=== PATIENT | male | born 1990 | race African-American/Black ===

== ENCOUNTER 2020-09-13 05:00 | Emergency (ER) | payer MEDICAID, SELFPAY ==
[2020-09-13 05:13] VITALS: BP 153/95; PULSE 58; RESP 18; TEMP 36.5; O2SAT 97; BMI 24.0
--- NOTE | 2020-09-13 06:02 | ED.DENTAL ---
HPI - Dental/Oral General Chief complaint: Dental/Oral Stated complaint: Dental pain Time Seen by Provider: 09/13/20 05:56 Source: patient Mode of arrival: ambulatory Limitations: no limitations History of Present Illness HPI Narrative: Patient comes to the emergency room complaining of dental pain. Patient complaining of maxillary pain in the right side. The pain has been ongoing for about 2 months, gradually getting worse. Patient has an appointment with the dentist in 2 days but can no longer stand the pain. Patient states that 2 months ago he was eating and chipped of a part of his tooth. Patient denies fever or chills MD Complaint: tooth pain Related Data Previous Rx's Medication Instructions Recorded ketorolac 10 mg tablet 10 mg PO TID PRN 5 Days #10 tab 09/13/20 penicillin V potassium 500 mg 500 mg PO TID 10 Days #30 tab 09/13/20 tablet Allergies Allergy/AdvReac Type Severity Reaction Status Date / Time No Known Allergies Allergy Verified 09/13/20 05:12 Review of Systems Review of Systems: Constitutional : No Weight loss, No Fever, No Chills, No Night Sweats, No Fatigue, No Malaise ENT/Mouth : Complaining of dental pain right maxillary side, No Hearing loss, No Ear Pain, No Nasal Congestion, No Sinus Pain, No Hoarseness, No sore throat, No Rhinorrhea, No Swallowing Difficulty Eyes: No Eye Pain, No Swelling, No Redness, No Foreign Body, No Discharge, No Vision Changes Cardiovascular : No Chest Pain, No SOB, No Dyspnea on Exertion, No Orthopnea, No Edema, No Palpitations Respiratory : No Cough, No Sputum, No Wheezing, No Smoke Exposure, No Dyspnea Gastrointestinal : No Nausea, No Vomiting, No Diarrhea, No Constipation, No abdominal Pain, No Hematochezia, No Melena Genitourinary : no irregular bleeding, No Dysuria, No Urinary Frequency, No Hematuria, No Urinary Incontinence, No Urgency, No Flank Pain, No Urinary Flow Changes, No Hesitancy Musculoskeletal : No joint pain, No Myalgias, No Joint Swelling Skin : No Skin Lesions, No rash Neuro : No Weakness, No Numbness, No Paresthesias, No Loss of Consciousness, No Dizziness, No Headache Psych : No Anxiety/Panic, No Depression, No SI/HI/AH/VH, No Social Issues, Heme/Lymph: No Bruising, No Bleeding,No Lymphadenopathy Endocrine : No Polyuria, No Polydipsia, No Temperature Intolerance Physical Exam Vital Signs: Vital Signs: Last Vital Signs Temp 97.7 F 09/13/20 05:13 Pulse 58 09/13/20 05:13 Resp 18 09/13/20 05:13 BP 153/95 H 09/13/20 05:13 Pulse Ox 97 09/13/20 05:13 Body Mass Index 24.0 Const: Other: Appearance: Alert. Oriented X3. No acute distress. Eyes: Pupils equal, round and reactive to light. ENT: Pharynx normal. Patient has a chipped tooth in the right maxillary side, no abscess Neck: Normal inspection. Neck supple. No lymph nodes noted. No crepitus CVS: Normal heart rate and rhythm. Pulses normal. Normal S1 and S2 Respiratory: No respiratory distress. Breath sounds normal. No Wheezing. No rales Abdomen: Soft and nontender. No rigidity. No distention. good BS x4 Skin: Skin warm and dry. Normal skin color. Normal skin turgor. Extremities: No lower extremity edema. No lower extremity edema. No Lacerations. No Rash Neuro: Oriented X 3. No motor deficit. No sensory deficit. Moving all extermities. No slurred speech. Course Course Course Narrative: I discussed with the patient that the treatment for this will be likely a tooth extraction. Patient was started today on penicillin and Ketoralac. Patient instructed not to use NSAIDs while taking ketorolac. First dose given in the emergency room Discharge Plan Discharge Clinical Impression: Toothache Patient Disposition: Home, Self-Care Instructions: Toothache (ED) Additional Instructions: Please follow-up with your primary care physician tomorrow. If you have any worsening or new symptoms, please return to the emergency room or call 911 Prescriptions: New ketorolac 10 mg tablet 10 mg PO TID PRN (Reason: pain) 5 Days Qty: 10 RF: 0 penicillin V potassium 500 mg tablet 500 mg PO TID 10 Days Qty: 30 RF: 0
[2020-09-13] MEDS: Ketorolac Tromethamine 60 MG/2 ML VIAL IM (06:16)
[2020-09-13] MEDS: Penicillin V Potassium 250 MG TABLET 500 MG PO (06:16)
== END 2020-09-13 06:24 | disposition home or self-care (01) ==
LOC: HO.ED 06:15
PROVIDERS: Emergency Provider Emergency Medicine
DX: K08.89 Other specified disorders of teeth and supporting structures (principal)
CPT/HCPCS: 96372; 99283; 99284; J1885

== ENCOUNTER 2020-09-15 08:29 | Emergency (ER) | payer MEDICAID, SELFPAY | END 2020-09-15 10:28 | disposition left against medical advice (07) | PROVIDERS: Emergency Provider Emergency Medicine | DX: R22.0 Localized swelling, mass and lump, head (principal) ==